=== PATIENT | male | born 1970 | race Caucasian/White ===

== ENCOUNTER → 2016-06-29 | Outpatient (CLI) | payer OTHER ==
[2016-06-29 11:50] LABS: FREE T4 (FREE THYROXINE) 1.16 ng/dL (0.93-1.71)
== END ==
LOC: LAB 09:47
PROVIDERS: ATTEND Family Medicine
DX: E89.0 Postprocedural hypothyroidism (principal); Z85.89 Personal history of malignant neoplasm of other organs and systems; F17.200 Nicotine dependence, unspecified, uncomplicated
CPT/HCPCS: 36415; 84436; 84439; 84443

== ENCOUNTER → 2016-07-25 | Outpatient (CLI) | payer OTHER ==
[2016-07-25 11:59] LABS: FREE T4 (FREE THYROXINE) 1.23 ng/dL (0.93-1.71)
== END ==
LOC: LAB 10:26
PROVIDERS: ATTEND Family Medicine
DX: E03.4 Atrophy of thyroid (acquired) (principal)
CPT/HCPCS: 36415; 84439; 84443

== ENCOUNTER 2016-07-26 07:08 | Day surgery (SDC) | payer OTHER ==
[~2016-07-26 07:08] MED LIST: BUPivacaine Inj 0.5% PF (5mg/ml) 10ml vial ONE; LIDOCAINE 2% 20 MG/ML - 20 ML VIAL ONE
--- NOTE | 2016-07-26 08:21 | GEN.OPNOTE ---
Operative Note Surgery Date: 07/26/16 Preoperative Diagnosis: Basal cell skin cancer with positive deep margin Postoperative Diagnosis: Same as preoperative Procedure: Reexcision of the basis of skin cancer 2 cm greatest length Surgeon: Ervin Fried MD Anesthesia Type: Local Estimated Blood Loss (mL): 0 Pathology: This cell skin cancer sent Indications: Patient has incisional biopsy of the lesion of his chin. A came back basal cancer with deep margin being positive. Therefore he needed, or have reexcision site get into the subcutaneous fatty tissue to get deep margins Operative Summary: Patient placed in supine position. Timeout performed per protocols. Prepped draped sterile fashion. Infiltrated with 0.5 Marcaine with epinephrine for local anesthetic. May elliptical skin incision to encompass 5 mm margins around the scar. I then excised down into a wedge of the subcutaneous fatty tissue. Hemostasis obtained left cautery. Wound closed with 2-0 Vicryl for the deep subcutaneous tissue oral Monocryl for skin closure Steri-Strip applied sterile dressings applied.
[2016-07-26 09:02] VITALS: RESP 17; TEMP 97.3
== END 2016-07-26 08:33 | disposition home or self-care (01) ==
LOC: SDSC 07:08
PROVIDERS: ATTEND Surgery
DX: C44.91 Basal cell carcinoma of skin, unspecified (principal)
CPT/HCPCS: J2001; J3490

== ENCOUNTER → 2016-09-06 | Outpatient (CLI) | payer OTHER ==
[2016-09-06 15:10] LABS: FREE T4 (FREE THYROXINE) 1.46 ng/dL (0.93-1.71)
== END ==
LOC: LAB 09:24
PROVIDERS: ATTEND Family Medicine
DX: E03.4 Atrophy of thyroid (acquired) (principal)
CPT/HCPCS: 36415; 84439; 84443